=== PATIENT | female | born 1965 | race African-American/Black ===

== ENCOUNTER 2017-09-24 08:07 | Day surgery (SDC) | payer MEDICAID ==
[2017-09-24] MEDS ORDERED: D5 LR 1000 ML 1,000 ML IV ONE (08:12)
[2017-09-24] MEDS ORDERED: DIPRIVAN VIAL 20 ML ONE (09:21)
[2017-09-24 10:03] VITALS: BP 122/76
== END 2017-09-24 10:05 | disposition home or self-care (01) ==
LOC: SURG1 08:07
PROVIDERS: ATTEND Internal Medicine Gastroenterology
PROC: 0DB68ZX Excision of Stomach, Via Natural or Artificial Opening Endoscopic, Diagnostic (ICD-10-PCS; principal; 2017-09-24 11:30)
PROC: 0DB88ZX Excision of Small Intestine, Via Natural or Artificial Opening Endoscopic, Diagnostic (ICD-10-PCS; principal; 2017-09-24 11:30)
PROC: 0DJ08ZZ Inspection of Upper Intestinal Tract, Via Natural or Artificial Opening Endoscopic (ICD-10-PCS; principal; 2017-09-24 11:30)
DX: R10.13 Epigastric pain (principal); K21.9 Gastro-esophageal reflux disease without esophagitis; K29.60 Other gastritis without bleeding; K20.8 Other esophagitis; K44.9 Diaphragmatic hernia without obstruction or gangrene
CPT/HCPCS: A4217; J3490; J7120

== ENCOUNTER 2017-10-01 07:20 | Day surgery (SDC) | payer MEDICAID ==
[2017-10-01] MEDS ORDERED: D5 LR 1000 ML 1,000 ML IV ONE (07:30)
[2017-10-01] MEDS ORDERED: DIPRIVAN VIAL 20 ML ONE (08:22)
[2017-10-01] MEDS ORDERED: XYLOCAINE 2 % (PLAIN) ONE (08:23)
[2017-10-01 09:18] VITALS: BP 147/82
== END 2017-10-01 09:15 | disposition home or self-care (01) ==
LOC: SURG1 07:20
PROVIDERS: ATTEND Internal Medicine Gastroenterology
PROC: 0DJD8ZZ Inspection of Lower Intestinal Tract, Via Natural or Artificial Opening Endoscopic (ICD-10-PCS; principal; 2017-10-01 09:30)
PROC: 0DBM8ZX Excision of Descending Colon, Via Natural or Artificial Opening Endoscopic, Diagnostic (ICD-10-PCS; principal; 2017-10-01 09:30)
DX: K63.5 Polyp of colon (principal); K64.0 First degree hemorrhoids; Z80.0 Family history of malignant neoplasm of digestive organs; Z86.010 Personal history of colon polyps
CPT/HCPCS: A4217; J2001; J3490; J7120